=== PATIENT | female | born 1990 | race Caucasian/White ===

== ENCOUNTER 2018-04-19 11:15 | Emergency (ER) | payer SELFPAY ==
[2018-04-19] MEDS: KETOROLAC 30 MG INJ IM (11:35)
[2018-04-19] MEDS: ONDANSETRON (ODT) 4 MG TAB ODT (11:35)
== END 2018-04-19 13:55 | disposition home or self-care (01) ==
LOC: E/R 11:15
DX: S06.0X1A Concussion with loss of consciousness of 30 minutes or less, initial encounter (principal); R40.2142 Coma scale, eyes open, spontaneous, at arrival to emergency department; R40.2252 Coma scale, best verbal response, oriented, at arrival to emergency department; R40.2362 Coma scale, best motor response, obeys commands, at arrival to emergency department; R07.9 Chest pain, unspecified; V49.40XA Driver injured in collision with unspecified motor vehicles in traffic accident, initial encounter
CPT/HCPCS: 70450; 71045; 72125; 73030; 73562; 73610-RT; 93005; 96372; 99285-25